=== PATIENT | male | born 1965 | race American Indian/Alaskan Native ===

== ENCOUNTER 2017-04-06 12:27 | Day surgery (SDC) | payer BC, OTHER ==
[~2017-04-06 12:27] MED LIST: ANCEF/STERILE WATER 2 GM/20 ML IV NR; OMNIPAQUE (300 MG) IR ONE; WATER FOR IRRIG STERILE IR ONE
--- NOTE | 2017-04-06 13:49 | Anesthesia Consultation ---
Anesthesia Consult and Med Hx Date of service: 04/06/17 - Airway Anesthetic Teeth Evaluation: Good ROM Head & Neck: Adequate Mental/Hyoid Distance: Adequate Mallampati Class: Class III Intubation Access Assessment: Possibly Difficult - Pulmonary Exam CTA: Yes - Cardiac Exam Cardiac Exam: RRR - Pre-Operative Health Status ASA Pre-Surgery Classification: ASA3 Proposed Anesthetic Plan: General - Pulmonary Hx Smoking: No Hx Sleep Apnea: Yes (DX SLEEP APNEA WITH CPAP USE) - Cardiovascular System Hx Hypertension: Yes (X 7 YRS) - Central Nervous System Hx Back Pain: Yes (FROM STONE) - Endocrine Hx Non-Insulin Dependent Diabetes: Yes - Other Systems Hx Cancer: No
--- NOTE | 2017-04-06 13:50 | Anesthesia Day of Surgery ---
Anesthesia Day of Surgery - Day of Surgery Patient Examined: Yes Patient H&P Reviewed: Yes Patient is NPO: Yes
[2017-04-06] MEDS ORDERED: ZOFRAN IV PRN (13:51)
[2017-04-06] MEDS ORDERED: NORCO 5/325 PO PRN (13:51)
[2017-04-06] MEDS ORDERED: VERSED IV NR (14:00)
[2017-04-06] MEDS ORDERED: NACL 0.9% 1000 ML 1,000 ML IV SCH (15:00)
[2017-04-06] MEDS ORDERED: DILAUDID ONE (15:02)
[2017-04-06] MEDS ORDERED: DIPRIVAN 10 MG/ML IV ONE ×3 (15:02→16:06)
[2017-04-06] MEDS ORDERED: XYLOCAINE MPF 2% ONE (15:04)
[2017-04-06] MEDS ORDERED: ROBINUL ONE (15:04)
[2017-04-06] MEDS ORDERED: PROAIR IH ONE (15:28)
[2017-04-06] MEDS ORDERED: DECADRON ONE (15:32)
[2017-04-06] MEDS ORDERED: NACL 0.9% 1000 ML 1,000 ML ONE (15:56)
[2017-04-06] MEDS ORDERED: ZOFRAN ONE (16:00)
--- NOTE | 2017-04-06 16:31 | Short Stay Summary ---
Short Stay Documentation Date of service: 04/06/17 - History H&P: obtained from office - Allergies and Medications Current Medications: Allergies No Known Allergies Allergy (Verified 04/05/17 11:47) Home Medications Medication Instructions Recorded Confirmed Last Taken Type HYDROcodone/APAP 5-325 [Cascade 1 each PO Q6HR PRN 04/05/17 04/06/17 04/05/17 19: 00 History 5/325] Metformin HCl [Glucophage] 1,000 mg PO BID 04/05/17 04/06/17 04/05/17 19:00 History Tamsulosin [Flomax] 0.4 mg PO QDAY 04/05/17 04/06/17 04/05/17 19:00 History Valsartan 40 mg PO DAILY 04/05/17 04/06/17 04/05/17 19:00 History Zofran TAB 4 mg PO PRN PRN 04/05/17 04/05/17 Unknown History amLODIPine [Norvasc] 10 mg PO DAILY 04/05/17 04/06/17 04/05/17 19:00 History Active Medications Cefazolin Sodium (Ancef/Sterile Water 2 Gm/20 Ml) 2 gm IV PREOP NR Stop: 04/06/17 23:59 Hydromorphone HCl (Dilaudid) 0.5 mg IV Q10MIN PRN PRN Reason: Pain , Severe (7-10) Stop: 04/09/17 13:52 Sodium Chloride (Nacl 0.9% 1000 Ml) 1,000 mls @ 125 mls/hr IV DIRECT NASIR Last Admin: 04/06/17 14:20 Dose: 125 mls/hr Midazolam HCl (Versed) 2 mg IV PREOP NR Stop: 04/06/17 23:59 Last Admin: 04/06/17 14:23 Dose: 2 mg - Brief post op/procedure progress note Date of procedure: 04/06/17 Pre-op diagnosis: rt distal stone Post-op diagnosis: same Procedure: cysto, rpg, rt uretersocpy, holium laser, stone extraction stent with external string Anesthesia: CRUZITOA Surgeon: NAGI BENAVIDES Estimated blood loss: minimal Pathology: list (stone with pt) Condition: stable - Hospital course Hospital course: cipro, norco, & post op info on chart - Disposition Condition at discharge: Stable Disposition: DC-01 TO HOME OR SELFCARE Short Stay Discharge Plan Follow up with: ARLET RODRÍGUEZ MD [Primary Care Provider] - 7 Days
[2017-04-06] MEDS: DILAUDID IV PRN ×2 (16:49→17:00)
[2017-04-06] MEDS ORDERED: NORMODYNE IV PRN (18:29)
[2017-04-06 21:31] VITALS: BP 142/85
--- NOTE | 2017-04-07 00:09 | Operative Report ---
PREOPERATIVE DIAGNOSIS: Right distal ureteral stone (9 mm). POSTOPERATIVE DIAGNOSIS: Right distal ureteral stone (9 mm). PROCEDURE: Cystoscopy, bilateral retrograde pyelograms, right ureteroscopy, holmium laser lithotripsy, basket stone extraction, double-J stent placement (6-Turkmen 26 cm with an external string). SURGEON: Jr Brewster MD ANESTHESIA: General. ANESTHESIOLOGIST: Zachery Dick MD ESTIMATED BLOOD LOSS: Minimal. FLUIDS: Crystalloid. COMPLICATIONS: No complications. INDICATIONS: This patient is a 51-year-old gentleman seen in the office. CT of abdomen and pelvis at [facility] revealed a 9 mm distal stone. Discussed options. The patient agreed to proceed with surgical intervention. DESCRIPTION OF PROCEDURE: The patient was taken to the operative suite, placed in a supine position. After adequate general anesthesia, placed in the dorsal lithotomy position, prepped and draped in a sterile fashion. Pancystourethroscopy was performed with a 22-Turkmen Storz cystoscope. Prostate minimally obstructing. Urethra was normal. The bladder did have obvious stone that could be appreciated at the ureteral orifice. Has somewhat of a dilation of that ureter suggestive of a mild ureterocele. Bilateral retrograde pyelograms were obtained with an 8-Turkmen Reno catheter and 8 mL of contrast. No filling defects or obstruction on the left. Right side, obvious 9 mm stone in the distal ureter. Two 0.035 Glidewires were placed. Rigid ureteroscopy was performed. Stone was visualized. A 200 micron holmium fiber was used starting at 4 langford, increased to 10 langford. Adequate fragmentation could be appreciated. Fragments were extracted with a 3-Turkmen Blanka basket. Ureteroscopy up to the renal pelvis. No other stones could be appreciated. A 6-Turkmen 26 cm double-J stent with an external string was left indwelling. The patient tolerated the procedure well. Rectal exam was benign. He was extubated and taken to the recovery room. He will go home on [facility] and [place] and follow up in the office. JOB# [id number] RAZIA/NATALIA
--- NOTE | 2017-04-07 09:15 | Fluoroscopy Report ---
Retrograde pyelogram: Right ureteral stone. There is a relatively large calculus slightly to the right of midline just above the pubic symphysis. Injection of contrast demonstrates that this represents a large filling defect in the distal ureter at the UV junction. The short opacified segment of ureter just proximal to this is moderately dilated. The stone apparently was removed and an internal stent was placed on the right. Injection of contrast on the left demonstrates a normal ureter and intrarenal collecting system. Impression: Removal of right distal ureteral calculus.
== END 2017-04-06 18:25 | disposition home or self-care (01) ==
LOC: OR 12:27
PROVIDERS: ATTEND Urology
DX: N20.1 Calculus of ureter (principal); N40.0 Benign prostatic hyperplasia without lower urinary tract symptoms; I10 Essential (primary) hypertension; E11.9 Type 2 diabetes mellitus without complications; G47.33 Obstructive sleep apnea (adult) (pediatric); Z79.84 Long term (current) use of oral hypoglycemic drugs; Z79.899 Other long term (current) drug therapy
CPT/HCPCS: 52356; 74420; 82962; A4217; C1758; C1769; C2617; J0690; J1100; J1170; J2250; J2405; J2704; J7030; Q9967